=== PATIENT | female | born 1975 | race Caucasian/White ===

== ENCOUNTER 2022-02-26 18:46 | Emergency (ER) | payer OTHER ==
[~2022-02-26] VITALS: Ht 165.1 cm; Wt 63.5 kg
[2022-02-26 18:46] VITALS: BP_SYST 131
--- NOTE | 2022-02-26 18:46 | NUR ---
BROUGHT IN BY [facility] PLACED IN BED #1 AND TRIAGED. REPORT GIVEN TO SON ACCORDING TO [facility], PT RECENTLY ARRIVED TODAY AT 1630, PT ADMITTED TO DRINKING 1 PINT OF VODKA, WITH A "WHOLE BUNCH" OF WHICH SHE THINKS WERE ATIVAN AND KLONOPIN. PT STATES THAT SHE GOT THE MEDICATIONS FROM [place] AND NOT REALLY SURE WHAT THEY ARE. PT STATES THAT SHE TOOK A LOT BENZOS FROM [place]. PT NOT COOPERATIVE WITH ANSWERING QUESTIONS IN TRIAGE. PT PLACED IN BED #1 AND CAREGIVER FROM [facility] AT BEDSIDE.
[2022-02-26] MEDS ORDERED: NICOTINE 21 MG/24 HR PATCH.TD24 TD SCH (19:15)
--- NOTE | 2022-02-26 19:17 | NUR ---
Received report from BRANDY Hammond; assuming care of patient at this time.
--- NOTE | 2022-02-26 19:18 | NUR ---
First contact with patient at this time. Patient A/Ox4, VSS, ambulatory, resp even and unlabored. Patient reports pain 0/10 at this time. Patient has an intact 20G IV in left hand. Patient states "I did something stupid earlier, what can I say I guess that makes me a piece of shit or something for doing that. I wasn't trying to kill myself, I was just being stupid." Patient reports she drank 1 L of vodka earlier and unknown amount of pills. Patient denies suicidal ideations, homicidal ideations, visual hallucinations, and/or auditiory hallucinations at this time. Patient has sitter at bedside. Nad noted at this time.
[2022-02-26 19:35] LABS: BASOPHILS # (AUTO) 0.1 K/uL (0.0-0.2); BASOPHILS % (AUTO) 0.9 % (0.0-2.0); EOSINOPHILS # (AUTO) 0.2 K/uL (0.0-0.4); EOSINOPHILS % (AUTO) 3.4 % (0.0-4.0); HEMATOCRIT 38.5 % (36-48); LYMPHOCYTES # (AUTO) 2.8 K/uL (1.0-5.5); LYMPHOCYTES % (AUTO) 40.5 % (20.5-51.5); MEAN CORPUSCULAR VOLUME 87 fL (79.0-98.0); MONOCYTES # (AUTO) 0.7 K/uL (0.0-1.0); MONOCYTES % (AUTO) 10.5 % (1.7-9.3); NEUTROPHILS # (AUTO) 3.1 K/uL (1.8-7.7); NEUTROPHILS % (AUTO) 44.7 % (40.0-70.0); PLATELET COUNT (AUTO) 301 K/uL (130-430); RED BLOOD CELL COUNT(AUTO) 4.44 MIL/uL (4.2-6.2); RED CELL DISTRIBUTION WIDTH 13.1 % (9.0-15.0); WHITE BLOOD COUNT (AUTO) 6.9 K/uL (4.8-10.8)
[2022-02-26 19:56] LABS: CALCIUM 9.5 mg/dL (8.4-11.0); CREATININE 1.01 mg/dL (0.55-1.30); POTASSIUM 3.8 mmol/L (3.5-5.1)
[2022-02-26 20:02] LABS: ALBUMIN 3.6 g/dL (3.4-4.8); TOTAL BILIRUBIN 0.2 mg/dL (0.0-1.0)
--- NOTE | 2022-02-26 21:14 | NUR ---
Patient given written and verbal discharge instructions and verbalizes understanding. ER MD discussed with patient the results and treatment provided. Patient in stable condition. ID arm band removed. IV catheter removed intact and dressing applied, no active bleeding. Patient is currently on a 5150 hold and is waiting on EMS transport to [place]. Patient continues to have sitter at bedside. Patient educated on pain management and to follow up with PMD. Pain Scale 0/10. Opportunity for questions provided and answered. Patient in stable condition with sitter from [place] at bedside. Nad noted at this time. Patient will remain in bed 1 with sitter at bedside until transport arrives.
--- NOTE | 2022-02-26 21:34 | NUR ---
Patient was told she was on a 5150 hold due to overdose earlier in the day. Patient became hostile and states "If I want to leave I can leave. I know the law and nobody is gonna stop me from going. If my ride isnt here in 5 minutes, I'm gonna go." Patient's sitter currently at bedside. ER charge nurse and security notified of patient threatening to leave while on a hold.
--- NOTE | 2022-02-26 21:36 | NUR ---
Security at bedside with wand, patient's things with sitter are now being given to security.
[2022-02-26] MEDS ORDERED: IBUPROFEN 600 MG TABLET PO ONE (22:45)
--- NOTE | 2022-02-27 | NUR ---
Pt moved to ER bed 5.Pt discharge waiting to ride to go back to [facility]. weekday babysitter will go home and spoke to [facility] .States he will send someone to replace the sitter and will be here around 3am.
--- NOTE | 2022-02-27 00:15 | NUR ---
[facility] notified for captain waiter .
--- NOTE | 2022-02-27 01:12 | NUR ---
Received call from BRANDY Galarza from [facility] requesting patient report. Report given at this time and BRANDY Galarza will assume care upon patient arrival to [facility].
[2022-02-27] MEDS ORDERED: chlordiazePOXIDE HCL 25 MG CAPSULE PO ONE (02:00)
--- NOTE | 2022-02-27 02:00 | NUR ---
[facility] faxed patient's MAR for ER MD Braun to review. ER MD Braun was given patient's recent VS at this time. MD Braun gave VO for 50mg Librium PO to be given at this time.
--- NOTE | 2022-02-27 06:50 | NUR ---
Patient sleeping in bed with side rails raised. Nad noted at this time.
--- NOTE | 2022-02-27 07:21 | NUR ---
Report given to BRANDY Mendoza; to assume care of patient at this time.
--- NOTE | 2022-02-27 07:30 | NUR ---
ASSUMED PATIENT CARE AAOX4 AT THIS TIME , NO ACUTE DISTRESS NOTED, DENIED SI/HI NO HALLUCINATION, PATIENT AWARES OF TRANSPORTATION WILL BE HERE SOON, REMAINS IN BED, WILL CONTINUE TO MONITOR.
[2022-02-27 08:09] VITALS: BP_SYST 104
--- NOTE | 2022-02-27 12:33 | NUR ---
Patient given written and verbal discharge instructions and verbalizes understanding. ER MD discussed with patient the results and treatment provided. Patient in stable condition. ID arm band removed. IV catheter removed intact and dressing applied, no active bleeding. Rx of [] given. Patient educated on pain management and to follow up with PMD. Pain Scale []. Opportunity for questions provided and answered. Medication side effect fact sheet provided. PATIENT DISCHARGE TO [facility].
== END 2022-02-26 21:14 ==
LOC: SED 18:46
DX: F10.129 Alcohol abuse with intoxication, unspecified (principal); T42.4X1A Poisoning by benzodiazepines, accidental (unintentional), initial encounter; F17.200 Nicotine dependence, unspecified, uncomplicated; F12.90 Cannabis use, unspecified, uncomplicated; Z79.899 Other long term (current) drug therapy; Y92.89 Other specified places as the place of occurrence of the external cause; Y90.6 Blood alcohol level of 120-199 mg/100 ml
CPT/HCPCS: 99284; 80053; 85025; 36415; G0482